=== PATIENT | female | born 1985 | race Caucasian/White ===

== ENCOUNTER 2023-02-14 07:28 | Day surgery (SDC) | payer OTHER, SELFPAY ==
[2023-02-14] VITALS (9 sets, daily range): BP systolic 119–148; BP diastolic 77–102; PULSE 63–81; RESP 16–20; TEMP 36.4–36.5; O2SAT 95–97; BMI 30.7
[2023-02-14] MEDS: LACTATED RINGERS 1000 ML 1,000 ML 100 ML IV (07:50)
[2023-02-14] MEDS: SODIUM CHLORIDE 0.9 % (FLUSH) 10 ML SYRINGE IVF (07:50)
[2023-02-14 07:56] LABS: Ur HCG Qualitative* Negative (Negative)
[2023-02-14] MEDS: LACTATED RINGERS 1000 ML 1,000 ML 35 ML IV (08:25)
[2023-02-14] MEDS: fentaNYL 100 MCG/2 ML inj 50 MCG IVP ×2 (08:56→09:03)
--- NOTE | 2023-02-14 08:56 | W.ANESCHARGE ---
Anesthesia Charges Start Date/Time Anesthesia Start Date: 02/14/23 Anesthesia Start Time: 08:41 Stop Date/Time Anesthesia Stop Date: 02/14/23 Anesthesia Stop Time: 08:59
--- NOTE | 2023-02-14 08:59 | W.ANESCHARGE ---
Anesthesia Charges Start Date/Time Anesthesia Start Date: 02/14/23 Anesthesia Start Time: 08:41 Stop Date/Time Anesthesia Stop Date: 02/14/23 Anesthesia Stop Time: 08:59
--- NOTE | 2023-02-14 12:16 | W.PM.ENTPROC ---
Procedure Note Date of procedure: 02/14/23 Procedure: Preoperative diagnosis bilateral tympanic membrane perforations small posterior on left, moderate anterior perforation on right new line postoperative diagnosis same Procedure is bilateral paper patch tympanoplasties Under general anesthesia patient was prepped and draped in usual fashion. The left ear canal was inspected and the perforation identified was quite small. The inferior and superior aspects minerva were abraded with a right angle hook. A piece of cigarette paper was trimmed and placed over the perforation. This was repeated on the left perforation in identical fashion. No drops were used. The patient procedure well was taken recovery in satisfactory condition. Blood loss less than 1 mL. Surgeon: Jack Paniagua MD
== END 2023-02-14 09:58 | disposition home or self-care (01) ==
LOC: OR 07:29
PROVIDERS: Anesthesiology; PCP Family Medicine; Visit Provider Otolaryngology
PROC: (CPT 69610; principal; 2023-02-14 08:45)
DX: H72.93 Unspecified perforation of tympanic membrane, bilateral (principal)
CPT/HCPCS: 69610; 00120; 81025; J2704; J3010; J7120